=== PATIENT | female | born 1995 | race Caucasian/White ===

== ENCOUNTER 2020-04-22 13:35 | Observation (INO) | payer MEDICAID ==
[~2020-04-22] VITALS: Ht 177.8 cm; Wt 90.7 kg
== END 2020-04-22 16:50 | disposition home or self-care (01) ==
LOC: SPU 13:35
PROVIDERS: ADMIT Obstetrics & Gynecology; ATTEND Obstetrics & Gynecology
DX: O36.8130 Decreased fetal movements, third trimester, not applicable or unspecified (principal); Z3A.38 38 weeks gestation of pregnancy
CPT/HCPCS: 76805; G0378; 81002-TC